=== PATIENT | male | born 1935 | race Caucasian/White ===

== ENCOUNTER 2018-01-04 13:43 | Outpatient (CLI) | payer MEDICARE, OTHER ==
--- NOTE | 2018-01-04 15:31 | XRAY Report ---
TWO VIEW CHEST: 01/04/2018 CLINICAL INDICATION: Cough. COMPARISON: 07/13/2015. FINDINGS: Frontal and lateral views of the chest demonstrate a normal cardiac silhouette. The lungs demonstrate diffuse interstitial prominence and mild hyperinflation, likely representing COPD and fibrosis. No focal consolidation, effusion, or pneumothorax is present. 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 NO EVIDENCE OF ACUTE CARDIOPULMONARY DISEASE. TD: 01/04/2018 15:30
== END 2018-01-04 13:44 | disposition home or self-care (01) ==
LOC: DI.N 13:43
PROVIDERS: ATTEND Internal Medicine
DX: R05 Cough (principal)
CPT/HCPCS: 71046

== ENCOUNTER 2018-04-10 16:35 | Emergency (ER) | END 2018-04-10 17:15 | disposition home or self-care (01) ==

== ENCOUNTER 2018-05-14 11:46 | Outpatient (CLI) | payer MEDICARE, OTHER ==
--- NOTE | 2018-05-14 12:36 | XRAY Report ---
Procedure Date: 05/14/2018 Accession Number: [id number] / [id number] Procedure: XRN - Chest 2 View X-Ray CPT Code: 61255 FULL RESULT: EXAM: Chest 2 View X-Ray DATE: 05/14/2018 12:04 PM CLINICAL HISTORY: COUGH FOCAL LUNG SOUNDS COMPARISON: None. TECHNIQUE: 2 views. FINDINGS: Lungs/Pleura: Coarse interstitial markings and bibasilar hazy opacities possibly partially due to soft tissue overlap appears similar to the previous study. Otherwise there is no new focal consolidation or pleural effusion. There is no pneumothorax. Mediastinum: The cardiac and mediastinal contours are stable and within normal limits. Other: None. IMPRESSION: Stable chest radiograph. [facility]
== END 2018-05-14 11:47 | disposition home or self-care (01) ==
LOC: DI.N 11:46
PROVIDERS: ATTEND Family Medicine
DX: R05 Cough (principal); R09.89 Other specified symptoms and signs involving the circulatory and respiratory systems
CPT/HCPCS: 71046

== ENCOUNTER 2018-11-17 12:38 | Outpatient (CLI) | payer MEDICARE, OTHER ==
[2018-11-17] MEDS ORDERED: ALBUTEROL NEB 2.5 MG/3 ML INH ONE (14:15)
== END 2018-11-17 12:39 | disposition home or self-care (01) ==
LOC: RT 12:38
PROVIDERS: ATTEND Family Medicine
DX: R06.00 Dyspnea, unspecified (principal); Z87.891 Personal history of nicotine dependence
CPT/HCPCS: 94060

== ENCOUNTER 2019-03-03 07:27 | Outpatient (CLI) | payer MEDICARE, OTHER | END 2019-03-03 07:28 | disposition short-term general hospital (02) | LOC: EMS 07:27 | PROVIDERS: ATTEND Surgery | DX: R06.02 Shortness of breath (principal); R07.9 Chest pain, unspecified | CPT/HCPCS: A0425; A0427 ==

== ENCOUNTER 2019-06-16 13:09 | Outpatient (CLI) | payer MEDICARE, OTHER | END 2019-06-16 13:10 | disposition short-term general hospital (02) | LOC: EMS 13:09 | PROVIDERS: ATTEND Surgery | DX: R06.02 Shortness of breath (principal) | CPT/HCPCS: A0425; A0427 ==